=== PATIENT | female | born 1970 | race Caucasian/White ===

== ENCOUNTER 2020-03-21 03:34 | Emergency (ER) | payer OTHER ==
[~2020-03-21] VITALS: Ht 182.9 cm; Wt 92.5 kg
[2020-03-21] MEDS ORDERED: ONDANSETRON HCL4 M2 PO (03:43)
[2020-03-21] MEDS ORDERED: ZINC SULFATE220 MG PO (03:44)
[2020-03-21] MEDS ORDERED: BUPROPION XL300 MG PO (03:44)
[2020-03-21] MEDS ORDERED: FLUOXETINE HCL40 MG PO (03:44)
[2020-03-21] MEDS ORDERED: SUMATRIPTAN PO (03:44)
[2020-03-21] MEDS ORDERED: VITAMIN D310 MC1 PO (03:45)
[2020-03-21] MEDS ORDERED: PROMS25 WY RECTAL (05:05)
[2020-03-21] MEDS ORDERED: NAPROSYN500 MG PO (05:05)
[2020-03-21 06:16] VITALS: BP 124/73
== END 2020-03-21 06:19 | disposition home or self-care (01) ==
LOC: ER 03:34
DX: G43.909 Migraine, unspecified, not intractable, without status migrainosus (principal); R11.2 Nausea with vomiting, unspecified; E86.0 Dehydration; L40.9 Psoriasis, unspecified; Z97.5 Presence of (intrauterine) contraceptive device; Z79.899 Other long term (current) drug therapy; Z88.5 Allergy status to narcotic agent; Z88.8 Allergy status to other drugs, medicaments and biological substances